=== PATIENT | female | born 1985 | race Hispanic/Latino ===

== ENCOUNTER 2018-04-27 08:28 | Outpatient (CLI) | payer BC ==
--- NOTE | 2018-04-27 09:42 | ULT ---
LIMITED RIGHT BREAST ULTRASOUND: Date: 04-27-18 Provided Clinical History: Right breast palpable abnormalities. FINDINGS: Comparison is made with right breast ultrasound and mammogram dated 02-16-17 and right breast ultrasou nd and mammogram dated 09-22-16. Limited sonographic interrogation was performed at the 11 o'clock and 4 o'clock positions of the righ t breast in the regions of palpable concern. Circumscribed oval areas of diminished echogenicity with smooth margins are demonstrated in each location. The 11 o'clock mass measures about 3.5 cm. The 4 o 'clock mass measures about 2.7 cm. These are compatible with fibroadenomas appearing similar to previ ously worked up and biopsy proven fibroadenoma. IMPRESSION: BIRADS category 2 - benign findings. 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 If there is persistent clinical concern, consider surgical consultation for excision. POS: MEGHANN
== END 2018-04-27 08:29 | disposition home or self-care (01) ==
LOC: BICMAMMO 08:28
PROVIDERS: ATTEND Nurse Practitioner Family
DX: N63.10 Unspecified lump in the right breast, unspecified quadrant (principal); D24.1 Benign neoplasm of right breast
CPT/HCPCS: 77066; G0279